=== PATIENT | female | born 1970 | race Caucasian/White ===

== ENCOUNTER 2016-06-18 15:09 | Day surgery (SDC) | payer BC ==
--- NOTE | ~2016-06-18 | OP ---
Record Of Operation [facility] [address] [place]. [address] NAME: TRACY DOWNEY : 70 STATUS : [facility]#: [id number] AGE: 45 ADM/REG DATE : 06/18/16 MR#: [id number] REPORT SERV DATE: 06/18/16 DICTATED BY: TODD GUTIÉRREZ DATE: 06/18/16 REPORT STATUS : Draft TRANSCRIBED BY: MODL DATE: 06/18/16 DATE OF PROCEDURE: 06/18/2016 PREPROCEDURE DIAGNOSIS: A 6 mm distal right ureteral calculus. POSTPROCEDURE DIAGNOSIS: A 6 mm distal right ureteral calculus. PROCEDURE: Right extracorporeal shock wave lithotripsy. SURGEON: Todd Gutiérrez M.D. FIRER MARINE: Tracy Espino. ANESTHESIA: MAC. HISTORY: Ms. Downey is a 45-year-old white female with a symptomatic right ureteral calculus. We discussed treatment options and she requested right ESWL. Risks specific to this procedure include, but not limited to bleeding, infection, incomplete stone fragmentation, Steinstrasse, hematoma, injury to neighboring organs, need for further urologic procedures, anesthesia complications, and so forth. I answered all her questions I believe to her satisfaction. Subsequently, she requested the procedure and provided her informed written consent. PROCEDURE IN DETAIL: On 06/18/2016, the patient was brought to the lithotripsy suite. She was placed supine on the Definicare lithotripter. Biplanar fluoroscopy was used to localize the calculus, however, the calculus was relatively radiolucent. Therefore, we gave Omnipaque 350 mL intravenously. After approximately 10 minutes, the contrast material washed into the distal right ureter and coated the right ureteral stone where there was an obvious filling defect. This area was localized in multiple planes. A time-out was called. The proper patient and procedure were confirmed. Levaquin was administered as a perioperative antibiotic. At this time, the anesthesia team established monitored anesthesia care. Subsequently, we delivered a total of 4000 shocks at maximum power of 9 kV and rate of 120 shocks per minute to the stone. Fluoroscopy time was 1 minute. The patient tolerated the procedure well without immediate complications and was transferred to the recovery area in stable condition. RAC/MODL Todd Gutiérrez M.D. / [id number] Record Of Operation [address] [place]. [address] NAME: TARCY DOWNEY : 70 STATUS : [facility] PAT#: [id number] AGE: 45 ADM/REG DATE : 06/18/16 MR#: [id number] REPORT SERV DATE: 06/18/16 DICTATED BY: TODD GUTIÉRREZ DATE: 06/18/16 REPORT STATUS : Draft TRANSCRIBED BY: MODL DATE: 06/18/16 CC: Marv Carcamo MD
[~2016-06-18 15:09] MED LIST: ANAPROX PO; LORTAB 5 PO; PCET PO
== END 2016-06-18 20:51 | disposition home or self-care (01) ==
LOC: SDC 15:09
PROVIDERS: Urology
PROC: 0TF6XZZ Fragmentation in Right Ureter, External Approach (ICD-10-PCS; principal; 2016-06-18 17:00)
DX: N20.1 Calculus of ureter (principal); Z88.0 Allergy status to penicillin; Z88.6 Allergy status to analgesic agent; Z90.49 Acquired absence of other specified parts of digestive tract; Z90.710 Acquired absence of both cervix and uterus; Z98.890 Other specified postprocedural states
CPT/HCPCS: 50590; 74000; 85014; 85018; J2250; J2370; J2405; J3010; Q9967